=== PATIENT | male | born 1995 | race Caucasian/White ===

== ENCOUNTER 2020-12-17 09:29 | Emergency (ER) | payer OTHER ==
[2020-12-17] MEDS ORDERED: Sodium Chloride 0.9% 1000 ML 1,000 ML IV STA (09:37)
[2020-12-17] MEDS ORDERED: Sodium Chloride 0.9% 1000 ML 1,000 ML ONE (09:45)
[2020-12-17 10:01] LABS: Hematocrit 49.7 % (42-50); Hemoglobin 16.7 gm/dl (12.5-18.0); Mean Cell Volume 83.4 fl (78-100); Mean Corpuscular Hgb Concent. 33.6 g/dl (32-36); Mean Platelet Volume 10.5 fl (7.5-11.0); Platelet Count 210 K/mm3 (150-450); Red Blood Count 5.96 M/mm3 (4.1-5.6); Red Cell Distribution Width 13.8 % (11.5-14.0); White Blood Count 16.9 K/mm3 (4.0-10.5)
--- NOTE | 2020-12-17 10:12 | ERPHSYRPT ---
- History of Present Illness Time Seen by Provider: 12/17/20 09:40 Source: patient Exam Limitations: no limitations Patient Subjective Stated Complaint: LAw enforcement brought patient in due to withdraw. Law enforcement states patient was responding to medical personel ye sterday and since he will not respond verbally. Patient vomited green bile per officer this AM and assessed by Dr. estrada sent him to ED. Triage Nursing Assessment: Patient presents to ED d/t medication withdraw. Patient will not respond to medical personel or law enforcement. VS WNL, BP 134/73. Patient responsive to painful stimuli. Physician History: Patient is a 25-year-old male presents [facility] our ED from the [facility] for evaluation of altered mental status. Patient is a known heroin drug user per report. training officer reports that patient was functioning at his baseline yesterday. Today he was withdrawn. Patient nonverbal. Patient does not interact with staff. training officer reports that patient was sitting in his chair slumped over. Patient's extremities are cool to touch. No known trauma. No fever. Patient had 1 bout of bilious emesis. No known medical problems otherwise. Symptoms are constant. Symptoms are moderate in intensity. No specific worsening or improving factors. HPI limited due to patient's mental status. Timing/Duration: today Severity: moderate Modifying Factors: Improves With: nothing Associated Symptoms: nausea, vomiting, abdominal pain, No shortness of breath, No diaphoresis, No cough, No fever Allergies/Adverse Reactions: No Known Drug Allergies Allergy (Unverified 12/17/20 09:49) Home Medications: Loperamide HCl 2 mg [Imodium 2 mg] 2 mg PO BID 12/17/20 [History] Ondansetron ODT 4 MG [Zofran Odt 4 mg] 2 tab PO BID 12/17/20 [History] Hx Tetanus, Diphtheria Vaccination/Date Given: No (unknown) Travel Risk - International Travel Have you traveled outside of the country in past 3 weeks: No - Coronavirus Screening Are you exhibiting any of the following symptoms?: No Close contact with a COVID-19 positive Pt in past 14-21 Days: No - Vaccine Status Have you recieved a Covid-19 vaccination: No (Unknown) - Review of Systems All Other Systems: Unable due to condition - Past Medical History Pertinent Past Medical History: (unknown) - Past Surgical History Past Surgical History: (unknown) - Social History Smoking Status: Unknown if ever smoked - Nursing Vital Signs Nursing Vital Signs: Initial Vital Signs Pulse Rate 75 12/17/20 09:31 Respiratory Rate 23 12/17/20 09:31 Blood Pressure 142/71 12/17/20 09:31 O2 Sat by Pulse Oximetry 100 12/17/20 09:31 Pain Scale Pain Intensity 0 - Physical Exam General Appearance: no apparent distress, alert Eye Exam: PERRL/EOMI, eyes nml inspection Ears, Nose, Throat Exam: normal ENT inspection, TMs normal, pharynx normal, moist mucous membranes Neck Exam: normal inspection, non-tender, supple, full range of motion Respiratory Exam: normal breath sounds, lungs clear, No respiratory distress Cardiovascular Exam: regular rate/rhythm, normal heart sounds, normal peripheral pulses Gastrointestinal/Abdomen Exam: soft, normal bowel sounds, No tenderness, No mass Back Exam: normal inspection, normal range of motion, No CVA tenderness, No vertebral tenderness Extremity Exam: normal inspection, normal range of motion, pelvis stable, No swelling Neurologic Exam: No motor deficits Skin Exam: normal color, warm, dry, No rash Lymphatic Exam: No adenopathy SpO2 Interpretation: normal SpO2: 100 Procedures - Lumbar Puncture Timeout: Performed Indication: r/o meningitis Lumbar Puncture: sitting, betadine prep, 1% lidocaine local anesth, 3-4 lumbar space, fluid color clear, amount of fluid obtained (6cc), no complications - Course Nursing assessment & vital signs reviewed: Yes EKG Interpreted by Me: RATE (80), Sinus Rhythm, NORMAL AXIS, NORMAL INTERVALS, prolonged QT interval - CT Exams Head CT Interpretation: Tele-radiologist Report (CT head negative) Abdomen/Pelvis CT Interpretation: Tele-radiologist Report (Possible gastric outlet obstruction versus gastroparesis. Nonobstructive renal micro calculi) Ordered Tests: Active Orders 24 hr Category Date Time Status AMA [Release AMA] OM.NOW Care 12/17/20 17:38 Active Vehicle Refinisher STAT Care 12/17/20 09:37 Active EKG-ER Only STAT Care 12/17/20 09:37 Active IV Insertion STAT Care 12/17/20 09:37 Active Lumbar Puncture,Prepare for .as ordered Care 12/17/20 13:22 Active Pulse Oximetry (ED) STAT Care 12/17/20 10:13 Active ABDOMEN AND PELVIS W/0 CONTRAS [CT] Stat Exams 12/17/20 10:15 Completed HEAD WITHOUT CONTRAST [CT] Stat Exams 12/17/20 10:06 Completed ACETAMINOPHEN Stat Lab 12/17/20 10:01 Completed BLOOD CULTURE Stat Lab 12/17/20 11:00 Received CBC W DIFF Stat Lab 12/17/20 10:01 Completed CMP Stat Lab 12/17/20 10:01 Completed CSF DIFFERENTIAL Stat Lab 12/17/20 13:35 Completed CSF GLUCOSE Stat Lab 12/17/20 13:35 Completed CSF PROTEIN Stat Lab 12/17/20 13:35 Completed CSF, CELL COUNT Stat Lab 12/17/20 13:35 Completed CULTURE,CSF Stat Lab 12/17/20 13:35 Results CULTURE,URINE Stat Lab 12/17/20 13:06 Received ETHYL ALCOHOL Stat Lab 12/17/20 10:01 Completed Lactic Acid Stat Lab 12/17/20 11:16 Completed MAGNESIUM Stat Lab 12/17/20 10:26 Completed Manual Differential NC Stat Lab 12/17/20 10:01 Completed SALICYLATE Stat Lab 12/17/20 10:01 Completed TSH [TSH, 3RD Generation] Stat Lab 12/17/20 11:00 Completed UA W/RFX UR CULTURE Stat Lab 12/17/20 13:06 Completed Urine Triage Profile Stat Lab 12/17/20 13:06 Completed Medication Summary Generic Name Dose Route Start Last Admin Trade Name Freq PRN Reason Stop Dose Admin Ceftriaxone Sodium/Dextrose 1 g in 50 mls @ 100 mls/hr 12/18/20 10:00 12/17/20 17:35 Rocephin 1 Gm-D5w 50 Ml Bag IV 12/21/20 09:59 Infused Q24H10 MAVERICK Infusion Discontinued Medications Generic Name Dose Route Start Last Admin Trade Name Freq PRN Reason Stop Dose Admin Sodium Chloride 1,000 mls @ 999 mls/hr 12/17/20 09:37 12/17/20 10:59 Sodium Chloride 0.9% 1000 Ml IV 12/17/20 10:37 Infused .Q1H1M STA Infusion Sodium Chloride Confirm 12/17/20 09:45 Sodium Chloride 0.9% 1000 Ml Administered 12/17/20 09:46 Dose 1,000 mls @ ud .ROUTE .STK-MED ONE Lactated Ringer's 1,000 mls @ 999 mls/hr 12/17/20 11:46 12/17/20 12:59 Lactated Ringers IV 12/17/20 12:46 Infused .Q1H1M ONE Infusion Lactated Ringer's Confirm 12/17/20 11:48 Lactated Ringers Administered 12/17/20 11:49 Dose 1,000 mls @ ud IV .STK-MED ONE Vancomycin HCl 1 gm in 200 mls @ 125 mls/hr 12/17/20 13:25 12/17/20 16:21 Vancomycin 1 Gram/200 Ml Bag IV 12/17/20 15:00 125 mls/hr STAT ONE 125 mls/hr Administration Acyclovir Sodium 500 mg/ 100 mls @ 100 mls/hr 12/17/20 13:28 12/17/20 15:14 Dextrose IV 12/17/20 14:27 100 mls/hr STAT ONE Administration Ceftriaxone Sodium/Dextrose Confirm 12/17/20 14:23 Rocephin 1 Gm-D5w 50 Ml Bag Administered 12/17/20 14:24 Dose 1 g in 50 mls @ ud IV .STK-MED ONE Vancomycin HCl Confirm 12/17/20 16:20 Vancomycin 1 Gram/200 Ml Bag Administered 12/17/20 16:21 Dose 1 gm in 200 mls @ ud IV .STK-MED ONE Lorazepam 1 mg 12/17/20 17:05 12/17/20 17:33 Ativan 2 Mg/1 Ml Vial IV 12/17/20 17:06 1 mg STAT ONE Administration Lorazepam Confirm 12/17/20 17:07 Ativan 2 Mg/1 Ml Vial Administered 12/17/20 17:08 Dose 2 mg .ROUTE .STK-MED ONE Lab/Rad Data: Laboratory Result Diagrams 12/17/20 10:01 12/17/20 10:01 Laboratory Results 12/17/20 12/17/20 12/17/20 Range/Units 13:35 13:35 13:06 WBC (4.0-10.5) K/mm3 RBC (4.1-5.6) M/mm3 Hgb (12.5-18.0) gm/dl Hct (42-50) % MCV (78-100) fl MCH (26-32) pg MCHC (32-36) g/dl RDW (11.5-14.0) % Plt Count (150-450) K/mm3 MPV (7.5-11.0) fl Segmented Neutrophils (36.-66.) % Lymphocytes (Manual) (24-44) % Monocytes (Manual) (0.0-12.0) % Toxic Granulation Platelet Estimate (NORMAL) RBC Morphology Sodium (137-145) mmol/L Potassium (3.5-5.1) mmol/L Chloride (98-107) mmol/L Carbon Dioxide (22-30) mmol/L Anion Gap (5-15) MEQ/L BUN (9-20) mg/dL Creatinine (0.66-1.25) mg/dL Estimated GFR ML/MIN Glucose (74-106) mg/dL Lactic Acid (0.4-2.0) Calcium (8.4-10.2) mg/dL Magnesium (1.6-2.3) mg/dL Total Bilirubin (0.2-1.3) mg/dL AST (17-59) U/L ALT (0-50) U/L Alkaline Phosphatase (38-126) U/L Serum Total Protein (6.3-8.2) g/dL Albumin (3.5-5.0) g/dL TSH 3rd Generation (0.47-4.68) mIU/L Urine Color (YELLOW) Urine Appearance (CLEAR) Urine pH (5-6) Ur Specific Pauline (1.005-1.025) Urine Protein (Negative) Urine Ketones (NEGATIVE) Urine Blood (0-5) Néstor/ul Urine Nitrite (NEGATIVE) Urine Bilirubin (NEGATIVE) Urine Urobilinogen (0-1) mg/dL Ur Leukocyte Esterase (NEGATIVE) Urine WBC (Auto) (0-5) /HPF Urine RBC (Auto) (0-2) /HPF U Hyaline Cast (Auto) (0-2) /LPF U Epithel Cells (Auto) (FEW) /HPF Urine Bacteria (Auto) (NEGATIVE) /HPF Urine Mucus (Auto) (NEGATIVE) /HPF Urine Culture Reflexed (NO) Urine Glucose (NEGATIVE) mg/dL CSF Color COLORLESS CSF Clarity CLEAR CSF WBC 1 (0-6) CU. MM CSF RBC 0 (0-2) CU. MM CSF Protein (2) 59 (12-60) mg/dL CSF Glucose 74 H (40-70) mg/dL Salicylates (2-20) mg/dL Urine Opiates Level NEGATIVE (NEGATIVE) Ur Methadone NEGATIVE (NEGATIVE) Acetaminophen (10-30) ug/ml Urine Barbiturates NEGATIVE (NEGATIVE) Ur Phencyclidine (PCP) NEGATIVE (NEGATIVE) Urine Amphetamine POSITIVE (NEGATIVE) U Benzodiazepine Level NEGATIVE (NEGATIVE) Urine Cocaine POSITIVE (NEGATIVE) Urine Marijuana (THC) POSITIVE (NEGATIVE) Ethyl Alcohol (0-10) mg/dL 12/17/20 12/17/20 12/17/20 Range/Units 13:06 11:16 11:00 WBC (4.0-10.5) K/mm3 RBC (4.1-5.6) M/mm3 Hgb (12.5-18.0) gm/dl Hct (42-50) % MCV (78-100) fl MCH (26-32) pg MCHC (32-36) g/dl RDW (11.5-14.0) % Plt Count (150-450) K/mm3 MPV (7.5-11.0) fl Segmented Neutrophils (36.-66.) % Lymphocytes (Manual) (24-44) % Monocytes (Manual) (0.0-12.0) % Toxic Granulation Platelet Estimate (NORMAL) RBC Morphology Sodium (137-145) mmol/L Potassium (3.5-5.1) mmol/L Chloride (98-107) mmol/L Carbon Dioxide (22-30) mmol/L Anion Gap (5-15) MEQ/L BUN (9-20) mg/dL Creatinine (0.66-1.25) mg/dL Estimated GFR ML/MIN Glucose (74-106) mg/dL Lactic Acid 1.4 (0.4-2.0) Calcium (8.4-10.2) mg/dL Magnesium (1.6-2.3) mg/dL Total Bilirubin (0.2-1.3) mg/dL AST (17-59) U/L ALT (0-50) U/L Alkaline Phosphatase (38-126) U/L Serum Total Protein (6.3-8.2) g/dL Albumin (3.5-5.0) g/dL TSH 3rd Generation 0.039 L (0.47-4.68) mIU/L Urine Color YELLOW (YELLOW) Urine Appearance CLEAR (CLEAR) Urine pH 7.0 (5-6) Ur Specific Pauline 1.028 (1.005-1.025) Urine Protein 100 (Negative) Urine Ketones SMALL (NEGATIVE) Urine Blood SMALL (0-5) Néstor/ul Urine Nitrite NEGATIVE (NEGATIVE) Urine Bilirubin NEGATIVE (NEGATIVE) Urine Urobilinogen NEGATIVE (0-1) mg/dL Ur Leukocyte Esterase NEGATIVE (NEGATIVE) Urine WBC (Auto) 3-5 (0-5) /HPF Urine RBC (Auto) 11-15 (0-2) /HPF U Hyaline Cast (Auto) 3-5 (0-2) /LPF U Epithel Cells (Auto) NONE (FEW) /HPF Urine Bacteria (Auto) RARE (NEGATIVE) /HPF Urine Mucus (Auto) SLIGHT (NEGATIVE) /HPF Urine Culture Reflexed YES (NO) Urine Glucose NEGATIVE (NEGATIVE) mg/dL CSF Color CSF Clarity CSF WBC (0-6) CU. MM CSF RBC (0-2) CU. MM CSF Protein (2) (12-60) mg/dL CSF Glucose (40-70) mg/dL Salicylates (2-20) mg/dL Urine Opiates Level (NEGATIVE) Ur Methadone (NEGATIVE) Acetaminophen (10-30) ug/ml Urine Barbiturates (NEGATIVE) Ur Phencyclidine (PCP) (NEGATIVE) Urine Amphetamine (NEGATIVE) U Benzodiazepine Level (NEGATIVE) Urine Cocaine (NEGATIVE) Urine Marijuana (THC) (NEGATIVE) Ethyl Alcohol (0-10) mg/dL 12/17/20 12/17/20 12/17/20 Range/Units 10:26 10:01 10:01 WBC 16.9 H (4.0-10.5) K/mm3 RBC 5.96 H (4.1-5.6) M/mm3 Hgb 16.7 (12.5-18.0) gm/dl Hct 49.7 (42-50) % MCV 83.4 (78-100) fl MCH 28.0 (26-32) pg MCHC 33.6 (32-36) g/dl RDW 13.8 (11.5-14.0) % Plt Count 210 (150-450) K/mm3 MPV 10.5 (7.5-11.0) fl Segmented Neutrophils 88 H (36.-66.) % Lymphocytes (Manual) 7 L (24-44) % Monocytes (Manual) 5 (0.0-12.0) % Toxic Granulation 1+ Platelet Estimate NORMAL (NORMAL) RBC Morphology NORMAL Sodium 141 (137-145) mmol/L Potassium 3.7 (3.5-5.1) mmol/L Chloride 99 (98-107) mmol/L Carbon Dioxide 27 (22-30) mmol/L Anion Gap 18.8 H (5-15) MEQ/L BUN 28 H (9-20) mg/dL Creatinine 0.85 (0.66-1.25) mg/dL Estimated GFR > 60.0 ML/MIN Glucose 114 H (74-106) mg/dL Lactic Acid (0.4-2.0) Calcium 10.0 (8.4-10.2) mg/dL Magnesium 2.3 (1.6-2.3) mg/dL Total Bilirubin 0.90 (0.2-1.3) mg/dL AST 25 (17-59) U/L ALT 18 (0-50) U/L Alkaline Phosphatase 135 H (38-126) U/L Serum Total Protein 8.7 H (6.3-8.2) g/dL Albumin 4.9 (3.5-5.0) g/dL TSH 3rd Generation (0.47-4.68) mIU/L Urine Color (YELLOW) Urine Appearance (CLEAR) Urine pH (5-6) Ur Specific Pauline (1.005-1.025) Urine Protein (Negative) Urine Ketones (NEGATIVE) Urine Blood (0-5) Néstor/ul Urine Nitrite (NEGATIVE) Urine Bilirubin (NEGATIVE) Urine Urobilinogen (0-1) mg/dL Ur Leukocyte Esterase (NEGATIVE) Urine WBC (Auto) (0-5) /HPF Urine RBC (Auto) (0-2) /HPF U Hyaline Cast (Auto) (0-2) /LPF U Epithel Cells (Auto) (FEW) /HPF Urine Bacteria (Auto) (NEGATIVE) /HPF Urine Mucus (Auto) (NEGATIVE) /HPF Urine Culture Reflexed (NO) Urine Glucose (NEGATIVE) mg/dL CSF Color CSF Clarity CSF WBC (0-6) CU. MM CSF RBC (0-2) CU. MM CSF Protein (2) (12-60) mg/dL CSF Glucose (40-70) mg/dL Salicylates < 1.0 L (2-20) mg/dL Urine Opiates Level (NEGATIVE) Ur Methadone (NEGATIVE) Acetaminophen < 10 L (10-30) ug/ml Urine Barbiturates (NEGATIVE) Ur Phencyclidine (PCP) (NEGATIVE) Urine Amphetamine (NEGATIVE) U Benzodiazepine Level (NEGATIVE) Urine Cocaine (NEGATIVE) Urine Marijuana (THC) (NEGATIVE) Ethyl Alcohol < 10 (0-10) mg/dL - Progress Progress: unchanged, improved Progress Note: case discussed with Dr. Romano neurologist at [facility] who accepts transfer. We are awaiting return phone call from hospitalist at this time. 12/17/20 13:49 12/17/20 13:[address] Vila who accepts transfer. We are currently awaiting a bed assignment. I spoke to Dr. Funez early earlier and Dr. Funez requested transfer to higher level of care. 12/17/20 13:59 12/17/20 17:48 Patient was given a 1 mg dose of Ativan. He immediately awoke and started talking to his family. Patient refused transfer to [facility]. AMA form completed. Patient has hypothyroidism that will need medical attention. Patient will be going back to nursing home. Patient states he will follow-up with his primary care doctor to address the hypothyroid is him. Patient is of sound mind. Patient is appropriate to make informed and independent medical decisions. Patient understands that leaving AGAINST MEDICAL ADVICE can result in delayed diagnosis, increased risk of morbidity, mortality, short and long-term disability including . In spite of these risks, patient has decided to leave AGAINST MEDICAL ADVICE. Patient understands that he may return to our ED at any point if he reconsiders. Patient agrees to follow-up with his primary care doctor within 48 hours for reevaluation. Patient voices no other complaints or concerns at this time. We will release patient AGAINST MEDICAL ADVICE per their request. Discussed with .: Alfa Will see patient in: office Counseled pt/family regarding: lab results, diagnosis, rad results - Departure Departure Disposition: AMA Clinical Impression: Leukocytosis, High anion gap metabolic acidosis, Nephrolithiasis, Gastric outlet obstruction, Gastroparesis, Hyperthyroidism Condition: Stable Critical Care Time: No Referrals: DOCTOR,NO FAMILY [Primary Care Provider] - BENITO FUNEZ MD [ACTIVE STAFF] - Additional Instructions: Discharge/Care Plan EMILIANO STEPHENSON was seen on 12/17/20 in the Emergency Room. The patient was counseled regarding Diagnosis,Lab results, Imaging studies, need for follow up and when to return to the Emergency Room. Prescriptions given: Discharge Note I have spoken with the patient and/or caregivers. I have explained the patient's condition, diagnosis and treatment plan based on the information available to me at this time. I have answered the patient's and/or caregiver's questions and addressed any concerns. The patient and/or caregivers have as good understanding of the patient's diagnosis, condition and treatment plan as can be expected at this point. The vital signs have been stable. The patient's condition is stable and appropriate for discharge from the emergency department. The patient will pursue further outpatient evaluation with the primary care physician or other designated or consulting physician as outlined in the dischar ge instructions. The patient and/or caregivers are agreeable to this plan of care and follow-up instructions have been explained in detail. The patient and/or caregivers have received these instruction. The patient/and or caregivers are aware that any significant change in condition or worsening of symptoms should prompt an immediate return to this or the closest emergency department or call 911.
[2020-12-17 10:14] LABS: ACETAMINOPHEN < 10 ug/ml (10-30); ALBUMIN 4.9 g/dL (3.5-5.0); ALKALINE PHOSPHATASE 135 U/L (38-126); ANION GAP 18.8 MEQ/L (5-15); BLOOD UREA NITROGEN 28 mg/dL (9-20); CHLORIDE 99 mmol/L (98-107); Carbon Dioxide 27 mmol/L (22-30); Creatinine 1 0.85 mg/dL (0.66-1.25); EST GLOMERULAR FILTRATION RATE > 60.0 ML/MIN; ETHYL ALCOHOL < 10 mg/dL (0-10); Glucose 114 mg/dL (74-106); Potassium 3.7 mmol/L (3.5-5.1); SALICYLATE < 1.0 mg/dL (2-20); SGOT/AST 25 U/L (17-59); SGPT/ALT 18 U/L (0-50); SODIUM 141 mmol/L (137-145); Total Protein 8.7 g/dL (6.3-8.2)
--- NOTE | 2020-12-17 10:56 | XRAY ---
Indication: Altered mental status. Multiple contiguous axial images obtained through the head without contrast. Comparison: None Normal appearing brain parenchyma, ventricles, and bony calvarium. Visualized paranasal sinuses and mastoid air cells are clear. Impression: Normal CT head without contrast exam.
--- NOTE | 2020-12-17 11:00 | XRAY ---
Indication: Vomiting bile. Multiple contiguous axial images obtained through the abdomen and pelvis without contrast. Comparison: None Mild respiration artifact and beam artifact from patient's arms limits exam. Lung bases grossly clear. Heart is not enlarged. Stomach is moderately distended with fluid/air. Noncontrasted bowel loops appear nonobstructed. Appendix not seen. No free fluid/air. Gallbladder contracted without gallstones. A few nonobstructing punctate calculi bilaterally. Remaining liver, gallbladder, pancreas, spleen, adrenal glands, kidneys, ureters, bladder, and aorta grossly unremarkable for noncontrast exam. Osseous structures intact. No ventral or inguinal hernias. Impression: 1. Respiration and beam artifact limits exam. 2. Moderate air and fluid distended stomach. Rule out outlet obstruction versus gastroparesis. 3. Nonobstructing bilateral renal micro-calculi. 4. Remaining CT abdomen/pelvis without contrast exam is grossly negative.
[2020-12-17] MEDS ORDERED: Lactated Ringers 1,000 ML IV ONE ×2 (11:46→11:48)
[2020-12-17] MEDS ORDERED: VANCOMYCIN 1 GRAM/200 ML BAG 1 GM/200 ML PIGGYBACK IV ONE ×2 (13:25→16:20)
[2020-12-17 13:27] LABS: Appearance CLEAR (CLEAR); Bacteria RARE /HPF (NEGATIVE); Bilirubin NEGATIVE (NEGATIVE); Blood SMALL Ery/ul (0-5); Glucose NEGATIVE (NEGATIVE); Ketones SMALL (NEGATIVE); Leukocyte Esterase NEGATIVE (NEGATIVE); Mucus SLIGHT /HPF (NEGATIVE); Nitrite NEGATIVE (NEGATIVE); Protein,Urine Dip 100 (Negative); Specific Gravity 1.028 (1.005-1.025); Urobilinogen NEGATIVE mg/dL (0-1)
[2020-12-17] MEDS ORDERED: Zovirax INJ*** 500 MG in D5w 100ML Mini Bag 100 ML 100 ML IV ONE (13:28)
[2020-12-17 13:39] LABS: Barbiturate,Urine NEGATIVE (NEGATIVE); Benzodiazepine,Urine NEGATIVE (NEGATIVE); Cocaine,Urine POSITIVE (NEGATIVE); Methadone,Urine NEGATIVE (NEGATIVE); Opiate,Urine NEGATIVE (NEGATIVE); PCP,Urine NEGATIVE (NEGATIVE); THC,Urine POSITIVE (NEGATIVE)
[2020-12-17 14:05] LABS: CSF GLUCOSE 74 mg/dL (40-70); CSF PROTEIN 59 mg/dL (12-60)
[2020-12-17 14:13] LABS: CSF CLARITY CLEAR; CSF RBCS 0 CU. MM (0-2); CSF WBCS 1 CU. MM (0-6)
[2020-12-17 14:14] LABS: CSF COLOR COLORLESS
[2020-12-17] MEDS ORDERED: ROCEPHIN 1 Gm-D5w 50 ml Bag** 1 G/50 ML IVPB IV ONE (14:23)
[2020-12-17 14:31] LABS: Amphetamine,Urine POSITIVE (NEGATIVE)
[2020-12-17 15:43] LABS: Lymphocytes 7 % (24-44); Monocyte 5 % (0.0-12.0); Neutrophils 88 % (36.-66.); Platelet Estimate NORMAL (NORMAL); Total Cells Counted 100; Toxic Granulation 1+
[2020-12-17] MEDS ORDERED: Ativan 2 MG/1 ML VIAL IV ONE (17:05)
[2020-12-17] MEDS ORDERED: Ativan 2 MG/1 ML VIAL ONE (17:07)
[2020-12-17 17:24] VITALS: BP 113/82; PULSE 75
[2020-12-17 17:51] VITALS: O2SAT 100
[2020-12-18] MEDS ORDERED: ROCEPHIN 1 Gm-D5w 50 ml Bag** 1 G/50 ML IVPB IV SCH (10:00)
== END 2020-12-17 18:00 | disposition left against medical advice (07) ==
LOC: ED 09:29
DX: D72.829 Elevated white blood cell count, unspecified (principal); E87.2 Acidosis; N20.0 Calculus of kidney; K31.1 Adult hypertrophic pyloric stenosis; K31.84 Gastroparesis; E05.90 Thyrotoxicosis, unspecified without thyrotoxic crisis or storm
CPT/HCPCS: 36000; 36415; 62270; 70450; 74176; 80053; 80307; 81001; 82945; 83605; 83735; 84157; 84443; 85025; 87040; 87070; 87086; 87529; 87798; 89050; 89051; 93005; 93041; 94760; 96360; 96361; 96365; 96367; 96374; 99285; G0480; 96375; J0133; J0696; J2060; J3370